=== PATIENT | male | born 1975 | race Caucasian/White ===

== ENCOUNTER 2019-05-14 06:07 | Day surgery (SDC) | payer OTHER ==
[2019-05-13 11:47] VITALS: BMI 32.1
[2019-05-14] MEDS ORDERED: MIDAZOLAM HCL 2 MG/2 ML SINGLE DOSE VIAL ONE (07:39)
[2019-05-14] MEDS ORDERED: SUCCINYLCHOLINE CHLORIDE 200 MG/10 ML SYRINGE ONE (07:43)
[2019-05-14] MEDS ORDERED: ROCURONIUM BROMIDE 50 MG/5 ML SYRINGE ONE (07:43)
[2019-05-14] MEDS ORDERED: PROPOFOL 20 ML ONE ×3 (07:43→09:53)
[2019-05-14] MEDS ORDERED: BUPIVACAINE HCL/PF 2.5 MG/ML - 30 ML VIAL IJ ONE (08:17)
[2019-05-14] MEDS ORDERED: PROMETHAZINE HCL 25 MG/1 ML VIAL IVPUSH PRN (10:18)
[2019-05-14] MEDS ORDERED: oxyCODONE HCL 5 MG TABLET PO PRN (10:18)
[2019-05-14] MEDS ORDERED: ONDANSETRON 4 MG/2 ML VIAL IVPUSH PRN (10:18)
[2019-05-14] MEDS ORDERED: LACTATED RINGERS SOLUTION 1,000 ML IV SCH (10:30)
--- NOTE | 2019-05-14 10:32 | OP ---
DATE OF OPERATION: 05/14/2019 SURGEON: Garrett Silvestre MD [employer] WORKER: ANABELLA Camarena PREOPERATIVE DIAGNOSIS: Right distal biceps rupture/tear. POSTOPERATIVE DIAGNOSIS: Right distal biceps rupture/tear. PROCEDURE: Reinsertion of distal biceps rupture. FINDINGS: Avulsed biceps tendon with tearing through the central portion of the tendon. DESCRIPTION OF PROCEDURE: Informed consent was obtained. The patient was taken to the operating room, where the right upper extremity was prepped and draped in sterile fashion. Tourniquet was placed on the upper arm, inflated to 250 mmHg. Horizontal incision was made 2 cm distal to the elbow crease. Careful attention was noted to extensively scarred-in biceps tendon. Careful attention was made for removal of scar tissue, and the biceps tendon was identified, tracing it back to the biceps muscle. Two interlocking Krackow stitches using No. 2 FiberWire were placed around the tendon and securing it to a ToggleLoc biceps device. Soft tissue debridement was performed around the radial tuberosity at the insertion for the biceps. The ToggleLoc drilling device with the outer cortex being a 7 mm, the posterior cortex being a 4 mm, allowed for passage of the ToggleLoc device to the posterior cortex, then tightening the device, bringing the tendon into the bleeding bone. Wound was irrigated with copious amounts of irrigation throughout the procedure, and layered closure of 2-0 Vicryl and 3-0 Prolene was performed. Sterile dressing was applied, patient transferred to the recovery room without complication. GARRETT SILVESTRE M.D. [id number]
[2019-05-14] MEDS ORDERED: MEPERIDINE HCL CARPU-JECT 25 MG/1 ML DISP.SYRIN IVPUSH ONE (11:00)
[2019-05-14 12:55] VITALS: TEMP 98.4
[2019-05-14 13:17] VITALS: BP 135/70; PULSE 112
--- NOTE | 2019-05-16 13:04 | PATH ---
Surgical Pathology Report Patient Name: MYA LARA Med. Rec. #: [id number] /Age/Gender: 1975 (Age: 43) / M Account: [id number] Location: [facility] Taken: 05/14/2019 Received: 05/14/2019 Reported: 05/16/2019 Physicians: Jus Anthony M.D. Specimen(s) Received RIGHT BICEPS TENDON Clinical History Right biceps tendon tear Final Diagnosis RIGHT BICEPS TENDON, EXCISION: TENDINOUS TISSUE WITH FOCAL FIBROSIS AND DEGENERATIVE CHANGE. Electronically Signed Kaycee Romo M.D. Gross Description Received in formalin labeled "right biceps tendon," is a 2.5 x 1.2 x 0.5 cm munoz-samayoa portion of fibrous tissue, consistent with a portion of tendon. The specimen is serially sectioned and entirely submitted in one cassette. /05/15/2019 saudi/05/15/2019
== END 2019-05-14 12:45 | disposition home or self-care (01) ==
LOC: FASU 06:07
PROVIDERS: ATTEND Orthopaedic Surgery
PROC: 0LM30ZZ Reattachment of Right Upper Arm Tendon, Open Approach (ICD-10-PCS; principal; 2019-05-14 08:55)
DX: M66.88 Spontaneous rupture of other tendons, other sites (principal)
CPT/HCPCS: 88304-TC; 94760